=== PATIENT | male | born 1990 ===

== ENCOUNTER 2018-02-15 06:31 | Day surgery (SDC) | payer OTHER ==
[~2018-02-15] VITALS: Ht 165.1 cm; Wt 59.3 kg
[2018-02-15] MEDS ORDERED: ONDANSETRON HCL 4 MG/2 ML VIAL IVP ONE (06:32)
[2018-02-15] MEDS ORDERED: DEXAMETHASONE SOD PHOS 4 MG/ML VIAL IVP ONE (06:32)
[2018-02-15] MEDS ORDERED: MIDAZOLAM HCL 2 MG/2 ML VIAL IVP ONE (06:32)
[2018-02-15] MEDS ORDERED: FentaNYL CITRATE-PF 100 MCG/2 ML VIAL IVP ONE (06:32)
[2018-02-15] MEDS ORDERED: LIDOCAINE HCL/PF 2% 5 ML VIAL IM ONE (06:32)
[2018-02-15] MEDS ORDERED: PROPOFOL 1% 20 ML VIAL IVP ONE (06:32)
[2018-02-15] MEDS ORDERED: RINGERS SOLUTION,LACTATED 1,000 ML IV ONE ×2 (06:42→07:00)
[2018-02-15] MEDS ORDERED: AMPICILLIN SODIUM 1 GM/VIAL ONE (08:42)
== END 2018-02-15 11:15 | disposition home or self-care (01) ==
LOC: SURGERY 06:31
PROVIDERS: ATTEND Dentist General Practice
DX: K05.30 Chronic periodontitis, unspecified (principal); K03.6 Deposits [accretions] on teeth; G80.8 Other cerebral palsy; K59.09 Other constipation; Z98.890 Other specified postprocedural states
CPT/HCPCS: 41899; J0290; J1100; J2250; J2405; J2704; J3010; J3490; J7120